=== PATIENT | female | born 1980 | race Caucasian/White ===

== ENCOUNTER 2023-04-26 06:11 | Day surgery (SDC) | payer BC ==
[2023-04-24 11:59] VITALS: BMI 22.6
[2023-04-26] MEDS ORDERED: BUPIVACAINE HCL/EPINEPHRINE/PF 30 ML VIAL IJ ONE (07:17)
[2023-04-26] MEDS ORDERED: ROCURONIUM BROMIDE 50 MG/5 ML SYRINGE ONE (07:45)
[2023-04-26] MEDS ORDERED: PROPOFOL 80 ML ONE (07:45)
[2023-04-26] MEDS ORDERED: SUCCINYLCHOLINE CHLORIDE 200 MG/10 ML SYRINGE ONE (07:45)
[2023-04-26] MEDS ORDERED: MIDAZOLAM HCL 2 MG/2 ML SINGLE DOSE VIAL ONE (07:46)
[2023-04-26] MEDS ORDERED: LIDOCAINE HCL 2% JELLY 11 ML TP ONE (07:47)
[2023-04-26] MEDS ORDERED: [UNRECOGNIZED DRUG - OTHER] NR ONE (08:23)
[2023-04-26] MEDS ORDERED: HYDROmorphone HCL/PF 1 MG/ML VIAL ONE (08:52)
[2023-04-26] MEDS ORDERED: SUGAMMADEX SODIUM 200 MG/2 ML VIAL ONE (09:34)
[2023-04-26] MEDS ORDERED: NITROGLYCERIN 2% OINTMENT - 1GM PACKET TD ONE (09:48)
[2023-04-26] MEDS ORDERED: oxyCODONE HCL 5 MG TABLET PO PRN ×2 (10:26)
[2023-04-26] MEDS ORDERED: PROMETHAZINE HCL 25 MG/1 ML VIAL IVPB PRN (10:26)
[2023-04-26] MEDS ORDERED: ONDANSETRON 4 MG/2 ML VIAL IVPUSH PRN (10:26)
[2023-04-26] MEDS ORDERED: ACETAMINOPHEN 1000 MG/100 ML BAG IVPB PRN (10:28)
[2023-04-26 12:15] VITALS: RESP 16; TEMP 96.8
[2023-04-26 12:22] VITALS: BP 118/74; PULSE 98
== END 2023-04-26 12:10 | disposition home or self-care (01) ==
LOC: FASU 06:11
PROVIDERS: ATTEND Plastic Surgery
PROC: 0HBV0ZZ Excision of Bilateral Breast, Open Approach (ICD-10-PCS; principal; 2023-04-26 08:22)
DX: N62 Hypertrophy of breast (principal)
CPT/HCPCS: 81025; 88305-TC; 94760